=== PATIENT | male | born 1955 | race African-American/Black ===

== ENCOUNTER 2017-12-25 10:30 | Emergency (ER) | payer SELFPAY ==
[~2017-12-25] VITALS: Ht 167.6 cm; Wt 63.5 kg
[~2017-12-25 10:30] MED LIST: HYDR-971 PO; NAPR500T8 PO
[2017-12-25 11:30] VITALS: BP 128/60
[2017-12-25 11:48] LABS: BASO % 1 % (0-3); EOS # 0.2 x10^3/uL (0.0-0.7); EOS % 4 % (0-3); HEMATOCRIT 42.4 % (39.0-53.0); HEMOGLOBIN 14.7 g/dL (13.0-17.5); LYMPH # 1.5 x10^3/uL (1.0-4.8); LYMPH % 33 % (24-48); MEAN CORPUSCULAR HEMOGLOBIN 35 pg (25-35); MEAN CORPUSCULAR HGB CONC 35 g/dL (31-37); MEAN CORPUSCULAR VOLUME 102 fL (79-100); MONO # 0.3 x10^3/uL (0.0-1.1); MONO % 7 % (0-9); NEUT # 2.4 x10^3uL (1.8-7.7); NEUT % 55 % (31-73); PLATELET COUNT 240 x10^3/uL (140-400); RED BLOOD COUNT 4.18 x10^6/uL (4.30-5.70); RED CELL DISTRIBUTION WIDTH 12.6 % (11.5-14.5); WHITE BLOOD COUNT 4.4 x10^3/uL (4.0-11.0)
[2017-12-25 12:01] LABS: PROTHROMBIN TIME PATIENT 13.1 SEC (11.7-14.0)
[2017-12-25 12:08] LABS: CALCIUM 9.3 mg/dL (8.5-10.1); CREATININE 1.1 mg/dL (0.7-1.3); GFR 82.1; POTASSIUM 3.8 mmol/L (3.5-5.1)
[2017-12-25 12:19] LABS: ALBUMIN 3.9 g/dL (3.4-5.0); TOTAL BILIRUBIN 0.7 mg/dL (0.2-1.0); TOTAL PROTEIN 7.8 g/dL (6.4-8.2)
[2017-12-25] MEDS ORDERED: PSYL0.526 PO (12:52)
--- NOTE | 2017-12-25 15:58 | PHYS DOC ---
Past Medical History Past Medical History: No Pertinent History Past Surgical History: No Surgical History Alcohol Use: Occasionally Additional Information: reports drinking once weekly Drug Use: None Adult General Chief Complaint Chief Complaint: RECTAL BLEED [facility] Patient is a 62 year old female presents with chief complaint of rectal bleeding. Apparently he said that he had some rectal pain he had a bowel movement he noticed brown stool with red blood on top. He became concerned and came to the emergency room currently his pain is resolved he has not seen a doctor in several years although he says he plans to apply for open enrollment this coming month no abdominal pain at this time no fever Review of Systems Review of Systems Constitutional: Denies fever or chills [] Eyes: Denies change in visual acuity, redness, or eye pain [] Respiratory: Denies cough or shortness of breath [] Cardiovascular: No additional information not addressed in [facility] [] Musculoskeletal: Denies back pain or joint pain [] Neurologic: Denies headache, focal weakness or sensory changes [] All other systems were reviewed and found to be within normal limits, except as documented in this note. Allergies Allergies Allergies Coded Allergies Type Severity Reaction Last Updated Verified No Known Drug Allergies 02/19/16 No Physical Exam Physical Exam Constitutional: Well developed, well nourished, no acute distress, non-toxic appearance. [] HENT: Normocephalic, atraumatic, bilateral external ears normal, oropharynx moist, no oral exudates, nose normal. [] Eyes: PERRLA, EOMI, conjunctiva normal, no discharge. [] Neck: Normal range of motion, no tenderness, supple, no stridor. [] Pulmonary: Normal respiratory effort no increased work of breathing no obvious chest wall trauma Rectal exam shows a hemorrhoid that looks like it may have just bled there is some excoriated skin on top of an external hemorrhoid. No active bleeding trace brown stool proximally, no melena. No hematochezia. I Abdomen: soft, no tenderness, no masses, no pulsatile masses. [] Skin: Warm, dry, no erythema, no rash. [] Back: No tenderness, no CVA tenderness. [] Extremities: No tenderness, no cyanosis, no clubbing, ROM intact, no edema. [] Neurologic: Alert and oriented X 3, normal motor function, normal sensory function, no focal deficits noted. [] Psychologic: Affect normal, judgement normal, mood normal. [] Current Patient Data Vital Signs Vital Signs Date Time Temp Pulse Resp B/P (MAP) Pulse Ox O2 Delivery O2 Flow Rate FiO2 12/25/17 11:30 62 24 128/60 (82) 94 12/25/17 11:00 Room Air 12/25/17 10:30 97.9 97.9 Lab Values Laboratory Tests Test 12/25/17 10:57 White Blood Count 4.4 x10^3/uL (4.0-11.0) Red Blood Count 4.18 x10^6/uL (4.30-5.70) L Hemoglobin 14.7 g/dL (13.0-17.5) Hematocrit 42.4 % (39.0-53.0) Mean Corpuscular Volume 102 fL (79-100) H Mean Corpuscular Hemoglobin 35 pg (25-35) Mean Corpuscular Hemoglobin Concent 35 g/dL (31-37) Red Cell Distribution Width 12.6 % (11.5-14.5) Platelet Count 240 x10^3/uL (140-400) Neutrophils (%) (Auto) 55 % (31-73) Lymphocytes (%) (Auto) 33 % (24-48) Monocytes (%) (Auto) 7 % (0-9) Eosinophils (%) (Auto) 4 % (0-3) H Basophils (%) (Auto) 1 % (0-3) Neutrophils # (Auto) 2.4 x10^3uL (1.8-7.7) Lymphocytes # (Auto) 1.5 x10^3/uL (1.0-4.8) Monocytes # (Auto) 0.3 x10^3/uL (0.0-1.1) Eosinophils # (Auto) 0.2 x10^3/uL (0.0-0.7) Basophils # (Auto) 0.0 x10^3/uL (0.0-0.2) Prothrombin Time 13.1 SEC (11.7-14.0) Prothrombin Time INR 1.0 (0.8-1.1) Sodium Level 143 mmol/L (136-145) Potassium Level 3.8 mmol/L (3.5-5.1) Chloride Level 106 mmol/L (98-107) Carbon Dioxide Level 27 mmol/L (21-32) Anion Gap 10 (6-14) Blood Urea Nitrogen 18 mg/dL (8-26) Creatinine 1.1 mg/dL (0.7-1.3) Estimated GFR (Cockcroft-Gault) 82.1 BUN/Creatinine Ratio 16 (6-20) Glucose Level 100 mg/dL (70-99) H Calcium Level 9.3 mg/dL (8.5-10.1) Total Bilirubin 0.7 mg/dL (0.2-1.0) Aspartate Amino Transferase (AST) 29 U/L (15-37) Alanine Aminotransferase (ALT) 31 U/L (16-63) Alkaline Phosphatase 50 U/L (46-116) Total Protein 7.8 g/dL (6.4-8.2) Albumin 3.9 g/dL (3.4-5.0) Albumin/Globulin Ratio 1.0 (1.0-1.7) Laboratory Tests 12/25/17 10:57 Laboratory Tests 12/25/17 10:57 EKG EKG [] Radiology/Procedures Radiology/Procedures [] Course & Med Decision Making Course & Med Decision Making Pertinent Labs and Imaging studies reviewed. (See chart for details) []62-year-old male with no past medical history presenting with a single episode of bright red blood per rectum. Rectal examination does suggest a external hemorrhoid based on my examination. I think it might have just bled. Patient has no further bleeding while in the emergency room he has no abdominal pain his hemoglobin is normal his blood pressure is normal. Rectal exam proximally did show brown stool there is no melena or hematochezia so I think lower GI bleed other than the hemorrhoid is less likely. I think is okay for outpatient management. He says he plans to apply for a primary care doctor this month he was given psyllium for hemorrhoid treatment. He was advised to come back should he have any further rectal bleeding or black stool or hematochezia. He is agreeable to this plan. Dragon Disclaimer Dragon Disclaimer This electronic medical record was generated, in whole or in part, using a voice recognition dictation system. Departure Departure Impression: Primary Impression: GI bleed Disposition: HOME, SELF-CARE Condition: STABLE Patient Instructions: Rectal Bleeding, [id number] Additional Instructions: GET COLONOSCOPY IN 3 MONTHS Scripts Psyllium Husk (PSYLLIUM FIBER) 0.52 Gm Capsule 0.52 GM PO BID, #30 CAP Prov: ALLAN RICHMOND MD 12/25/17 ALLAN RICHMOND MD Dec 25, 2017 15:58
== END 2017-12-25 13:21 | disposition home or self-care (01) ==
LOC: ER 10:30
DX: K92.2 Gastrointestinal hemorrhage, unspecified (principal)
CPT/HCPCS: 36415; 80053; 85025; 85610; 99284

== ENCOUNTER → 2021-03-19 | Day surgery (SDC) | payer MEDICARE ==
[~2021-03-19] VITALS: Ht 167.6 cm; Wt 65.2 kg
[~2021-03-19] MED LIST changes: +HYDR-3164 PO; -HYDR-971 PO; +HYDROmorphone 2 MG/ML INJ. IVP PRN; +IV RINGERS,LACTATED 1000ML 1,000 ML IV SCH; +MORPHINE SULFATE 2 MG/ML INJ. IVP PRN; +PROCHLORPERAZINE 10 MG/2 ML VIAL. IVP PRN; +PROPOFOL 10 MG/ML (20ML) VIAL. IV ONE; +PSYL0.526 PO; +fentaNYL PF VIAL 100 MCG/2 ML VIAL IVP PRN
[2021-03-19 07:43] VITALS: BP 131/94
--- NOTE | 2021-03-19 08:48 | CONS ---
DATE OF CONSULTATION: 03/19/2021 REASON FOR CONSULTATION: Rectal bleed and abnormal CT scan with sigmoid mass as well as anemia. HISTORY OF PRESENT ILLNESS: This is a 65-year-old male whose past medical history is significant for anemia who is seen with a 1-year duration of intermittent rectal bleeding described as bright red and dark red in nature, there have been no constipation and/or diarrhea. Weight and appetite have been stable. There is no family history of colon polyps or colon cancer. He is otherwise without additional complaints. PAST MEDICAL HISTORY: Anemia, rectal bleeding. ALLERGIES: None. MEDICATIONS: Psyllium as needed. FAMILY HISTORY: Significant for diabetes. SOCIAL HISTORY: He is a smoker and drinker. He is retired. PAST SURGICAL HISTORY: Noncontributory. REVIEW OF SYSTEMS: HEENT: There is no decreased hearing or visual acuity issues. CARDIAC: No history of hypertension, palpitation, or syncope. PULMONARY: No shortness of breath, productive cough, asthma. RENAL: No dysuria, frequency, hematuria. MUSCULOSKELETAL: Osteoarthrosis. DERMATOLOGIC: No skin rashes or pruritus. ENDOCRINE: No history of heat or cold intolerance, thyroid disease or diabetes. GASTROINTESTINAL: See history of present illness. HEMATOLOGIC: There is a history of anemia. PHYSICAL EXAMINATION: GENERAL: Reveals a thin male. VITAL SIGNS: Temperature is 98.6, pulse ____, respirations 20. LUNGS: Clear. CARDIOVASCULAR: Reveals an S1, S2, without S3, S4 or appreciable murmur. ABDOMEN: Reveals a soft abdomen, normal bowel sounds, without appreciable hepatosplenomegaly. EXTREMITIES: Reveals no cyanosis, clubbing or edema. IMPRESSION: Anemia with rectal bleeding, abnormal CT scan, colonic polyp, mass and/or Crohn's disease are in the differential. Recommend colonoscopy. Risks and benefits of procedure including risk of hemorrhage and perforation with operation were discussed. The patient is willing to proceed at this time, NORBERT DR: Grecia TID: [id number] CC: TAMMY PEARCE DO
[2021-03-19 09:08] VITALS: BP 127/92
--- NOTE | 2021-03-22 18:06 | PATHOLOGY ---
[facility] Accession Number: [id number] . 01 Material submitted: . sigmoid colon - SIGMOID MASS BIOPSY . 01 Clinical history: . BLOOD IN STOOL COLONOSCOPY . 02 Diagnosis: Colon biopsies, sigmoid mass: - ADENOCARCINOMA, MODERATELY DIFFERENTIATED. SEE COMMENT. (JPM:pit; 03/22/2021) [facility] 03/22/2021 1206 Local . 02 Comment: Sections of the sigmoid colon mass biopsy reveal a malignant epithelial neoplasm. The latter is comprised of malignant glands which irregularly infiltrate an inflamed reactive stroma. The malignant glands focally have a gland within gland cribriform arrangement. The morphologic findings are supportive of the diagnosis of a moderately differentiated colorectal adenocarcinoma. The case is also examined by Dr. Geiger, who concurs with the diagnosis. The results are reported to Dr. Cruz on 03/22/2021 at 3:20 PM. (JPM:pit; 03/22/2021) . 02 Electronically signed: . Burt Robertson MD, Pathologist NPI- [id number] . 01 Gross description: . The specimen is received in formalin, labeled "Ferris, Tono, sigmoid mass BX". Received are multiple fragments of light spears tissue measuring 2.0 x 0.3 x 0.1 cm in aggregate dimensions. The specimen is filtered and entirely submitted in cassette A1. ([facility]; 03/19/2021) NRI/NRI 03/19/2021 1741 Local . 02 Pathologist provided ICD-10: C18.7 . 02 CPT . 424661 Specimen Comment: A courtesy copy of this report has been sent to [phone], [phone] Specimen Comment: [id number] Specimen Comment: Report sent to / DR PEARCE Specimen Comment: A duplicate report has been generated due to demographic updates. Performed at: 01 [facility] [address] [facility] [address], [place] [id number] MD Jean Claude Geiger MD Phone: [phone] Performed at: 02 [facility] [address] [place], [place] [id number] MD Burt Robertson MD Phone: [phone]
== END | disposition home or self-care (01) ==
LOC: SURG 07:10
PROVIDERS: ATTEND Internal Medicine Gastroenterology
DX: K62.5 Hemorrhage of anus and rectum (principal); D64.9 Anemia, unspecified; C18.7 Malignant neoplasm of sigmoid colon; K63.89 Other specified diseases of intestine; F17.210 Nicotine dependence, cigarettes, uncomplicated; Z72.89 Other problems related to lifestyle; Z79.899 Other long term (current) drug therapy; Z98.890 Other specified postprocedural states
CPT/HCPCS: 45380; 45381; 88305; C1713; J2704